=== PATIENT | male | born 1965 | race Two or more races ===

== ENCOUNTER 2024-10-25 09:00 | Day surgery (SDC) | payer MEDICAID, SELFPAY ==
[2024-10-24 14:45] VITALS: BMI 38.6
[2024-10-25] VITALS (11 sets, daily range): BP systolic 101–132; BP diastolic 74–93; PULSE 74–86; RESP 15–21; TEMP 36.2–36.6; O2SAT 94–98; BMI 38.0
[2024-10-25] MEDS: RINGERS LACTATED 1000 ML 1,000 ML 60 ML IV (11:40)
[2024-10-25] MEDS: DiphenhydrAMINE INJ 50 MG/ML VIAL 25 MG IVP (11:41)
[2024-10-25] MEDS: fentaNYL CIT INJ 50 mCg/ML AMP 2ML (ASD USE ONLY) IVP (11:41)
[2024-10-25] MEDS: MIDAZOLAM INJ 1 MG/ML VIAL 2 ML (ASD USE ONLY) 2 MG IVP (11:45)
== END 2024-10-25 12:45 | disposition home or self-care (01) ==
PROVIDERS: PCP Physician Assistant; Referring Provider Specialist; Visit Provider Specialist
PROC: 0DBE8ZX Excision of Large Intestine, Via Natural or Artificial Opening Endoscopic, Diagnostic (ICD-10-PCS; CPT 45380; principal; 2024-10-25 11:15)
DX: Z12.11 Encounter for screening for malignant neoplasm of colon (principal); K62.89 Other specified diseases of anus and rectum; D12.8 Benign neoplasm of rectum; K64.2 Third degree hemorrhoids
CPT/HCPCS: 45380; J1200; J2250; J3010; J7120